=== PATIENT | male | born 1940 | race Caucasian/White ===

== ENCOUNTER 2024-01-21 19:20 | Inpatient (IN) | payer OTHER ==
[~2024-01-21] VITALS: Ht 188 cm; Wt 101.6 kg
[2024-01-21 23:20] LABS: BASOPHILS ABSOLUTE AUTO 0.05 K/mm3 (0.00-0.23); BASOPHILS PERCENT AUTO 1 % (0-2); EOSINOPHILS ABSOLUTE AUTO 0.44 K/mm3 (0.00-0.68); EOSINOPHILS PERCENT AUTO 5 % (0-6); Hematocrit 43.6 % (37.0-53.0); Hemoglobin 14.6 g/dL (13.5-17.5); IMMATURE GRAN ABSOLUTE AUTO 0.03 K/mm3 (0.00-0.10); IMMATURE GRAN PERCENT AUTO 0 % (0-1); LYMPHOCYTES ABSOLUTE AUTO 2.57 K/mm3 (0.84-5.20); LYMPHOCYTES PERCENT AUTO 27 % (21-46); MONOCYTES ABSOLUTE AUTO 0.84 K/mm3 (0.16-1.47); MONOCYTES PERCENT AUTO 9 % (4-13); Mean Corpuscular HGB 31.5 pg (26.0-34.0); Mean Corpuscular HGB Conc 33.5 g/dL (31.5-36.5); Mean Corpuscular Volume 94 fL (80-100); Mean Platelet Volume 9.9 fL (9.1-12.4); NEUTROPHILS PERCENT AUTO 59 % (41-73); Platelet Count 225 K/mm3 (150-400); RDW Coefficient Variation 12.5 % (11.7-14.2); RDW Standard Deviation 43.2 fL (35.1-46.3); Red Blood Cell Count 4.63 M/mm3 (4.30-5.90); White Blood Cell Count 9.53 K/mm3 (4.00-11.30)
[2024-01-21 23:43] LABS: Albumin, Blood 3.5 g/dL (3.4-5.0); Albumin/Globulin Ratio 0.8 (0.8-1.8); Bilirubin, Total 0.7 mg/dL (0.1-1.0); Bun/Creatinine Ratio 18.8 (12.0-20.0); Calcium, Blood 9.5 mg/dL (8.5-10.1); Creatinine, Blood 0.8 mg/dL (0.60-1.20); Globulin, Blood 4.5 g/dL (2.2-4.0); Magnesium, Blood 0.7 mg/dL (1.6-2.4); Potassium, Blood 4.1 mmol/L (3.5-5.5)
[2024-01-21 23:46] LABS: International Normalized Ratio 1.05; Prothrombin Time Results 11.2 Sec (9.7-11.5)
[2024-01-21] MEDS ORDERED: Magnesium Sulf 2 GM/Water 50ML 50 ML IV ONE (23:50)
[2024-01-22] MEDS ORDERED: Magnesium Hydroxide Conc 10 ML UDC PO PRN (03:20)
[2024-01-22 04:01] LABS: BASOPHILS ABSOLUTE AUTO 0.04 K/mm3 (0.00-0.23); BASOPHILS PERCENT AUTO 1 % (0-2); EOSINOPHILS ABSOLUTE AUTO 0.43 K/mm3 (0.00-0.68); EOSINOPHILS PERCENT AUTO 5 % (0-6); Hematocrit 41.3 % (37.0-53.0); IMMATURE GRAN ABSOLUTE AUTO 0.03 K/mm3 (0.00-0.10); IMMATURE GRAN PERCENT AUTO 0 % (0-1); LYMPHOCYTES ABSOLUTE AUTO 2.48 K/mm3 (0.84-5.20); LYMPHOCYTES PERCENT AUTO 29 % (21-46); MONOCYTES ABSOLUTE AUTO 0.71 K/mm3 (0.16-1.47); MONOCYTES PERCENT AUTO 8 % (4-13); Mean Corpuscular HGB 31.6 pg (26.0-34.0); Mean Corpuscular HGB Conc 33.9 g/dL (31.5-36.5); Mean Corpuscular Volume 93 fL (80-100); Mean Platelet Volume 9.9 fL (9.1-12.4); NEUTROPHILS ABSOLUTE AUTO 4.74 K/mm3 (1.96-9.15); NEUTROPHILS PERCENT AUTO 56 % (41-73); Platelet Count 241 K/mm3 (150-400); RDW Coefficient Variation 12.4 % (11.7-14.2); RDW Standard Deviation 42.9 fL (35.1-46.3); Red Blood Cell Count 4.43 M/mm3 (4.30-5.90); White Blood Cell Count 8.43 K/mm3 (4.00-11.30)
[2024-01-22 04:19] LABS: Albumin, Blood 3.4 g/dL (3.4-5.0); Albumin/Globulin Ratio 0.8 (0.8-1.8); Bilirubin, Total 0.9 mg/dL (0.1-1.0); Bun/Creatinine Ratio 19.6 (12.0-20.0); Calcium, Blood 9.4 mg/dL (8.5-10.1); Creatinine, Blood 0.71 mg/dL (0.60-1.20); Globulin, Blood 4.2 g/dL (2.2-4.0); Magnesium, Blood 1.3 mg/dL (1.6-2.4); Potassium, Blood 3.9 mmol/L (3.5-5.5); Total Protein, Blood 7.6 g/dL (6.4-8.2)
[2024-01-22] MEDS ORDERED: Mag Sulfate 1 GM/D5% 100ML 100 ML IV STA (07:34)
[2024-01-22 13:25] VITALS: BP 147/67
[2024-01-22] MEDS ORDERED: ZESTRIL40 M1 PO (14:09)
[2024-01-22] MEDS ORDERED: THERA-D2000 UNIT PO (14:09)
[2024-01-22] MEDS ORDERED: GLIP10 PO (14:09)
[2024-01-22] MEDS ORDERED: POTA10T PO (14:10)
[2024-01-22] MEDS ORDERED: HYDHCL25 PO (14:10)
[2024-01-22] MEDS ORDERED: CHLO25B PO (14:10)
[2024-01-22] MEDS ORDERED: ATOR80 PO (14:11)
[2024-01-22] MEDS ORDERED: FISH OIL 1,0001 EA10 PO (14:12)
[2024-01-22] MEDS ORDERED: VITAMIN B12500 MCG PO (14:12)
[2024-01-22] MEDS ORDERED: Vitamin C100 M1 PO (14:13)
[2024-01-22] MEDS ORDERED: IBUP400 PO (14:13)
[2024-01-22] MEDS ORDERED: Acetaminophen 325 MG TABLET PO PRN (14:55)
--- NOTE | 2024-01-22 14:56 | NUR ---
ADMIT SUMMARY: PT ADMITTED TO ROOM 327 FROM ER. PT A/O X 4 ON ARRIVAL, [place]. ABLE TO ANSWER QUESTIONS APPROPRIATELY. PT REPORTS HE CAN BE FORGETFUL AT TIMES AND HE IS WORRIED ABOUT HOW FORGETFUL HE IS. PT TRANSFERRED TO BED FROM [facility] ON FEET. HOB ELEVATED TO 30 DEGREES. EXPLAINED PRECAUTIONS TO PT AND FAMILY. PT HAS 3+ EDEMA TO BLE. DAUGHTER REPORTS ONSET WAS YESTERDAY. SHE ALSO REPORTS PT DRINKS 2 SMALL GATORADES DAILY. DISCUSSED CONCERNS OF PT DRINKING GATORADE DUE TO SODIUM CONTENT. PT/FAMILY EDUCATED ON FALL PRECAUTIONS. BED IN LOW POSITION AND ALARM SET.
[2024-01-22] MEDS ORDERED: HyDROXyzine HCl 25 MG Tab PO PRN (15:00)
[2024-01-22] MEDS ORDERED: Cholecalciferol 1000 Unit Tablet (=25MCG) PO SCH (15:00)
[2024-01-22] MEDS ORDERED: Lisinopril 20 MG Tab PO SCH (15:00)
[2024-01-22] MEDS ORDERED: HydroCHLOROthiazide 25 mg Tab PO SCH (15:04)
--- NOTE | 2024-01-22 15:38 | NUR ---
PT TO TRANSFER TO [facility] IN [facility]. REPORT CALLED TO KRYSTINA BLEVINS AT [phone]. PT TO GO TO ROOM 206. FAMILY UPDATED WITH ROOM AND PLACE OF TRANSFER.
[2024-01-22] MEDS ORDERED: Ondansetron 4 MG TAB PO PRN (15:45)
[2024-01-22 15:51] VITALS: BP 147/67
[2024-01-22] MEDS ORDERED: GlipiZIDE 10 MG Tab PO SCH (17:00)
--- NOTE | 2024-01-22 17:18 | NUR ---
PT DISCHARGED TO [facility] VIA [facility] TRANSPORT AT 1705. PT GIVEN SNACKS TO EAT ON THE WAY SINCE DINNER HAD NOT ARRIVED. DAUGHTER TOOK CREDIT CARDS FROM PT WALLET WITH HER AND SENT [facility] WITH ID CARDS WITH PATIENT. CALL PLACED TO KRYSTINA BLEVINS TO UPDATE HER ON ETA.
[2024-01-22] MEDS ORDERED: Docosahexanoic Acid/EPA 1,000 MG CAP PO SCH (21:00)
[2024-01-22] MEDS ORDERED: Atorvastatin 40 MG Tab PO SCH (21:00)
[2024-01-23] MEDS ORDERED: Misc. Tablet PO SCH (09:00)
[2024-01-23] MEDS ORDERED: Cyanocobalamin 500 MCG Tab PO SCH (09:00)
== END 2024-01-22 17:01 | disposition short-term general hospital (02) | DRG 84 ==
LOC: ER 19:20 → ERHOLD 01-22 03:16 → MEDS 01-22 13:19
PROVIDERS: Family Medicine; Student in an Organized Health Care Education/Training Program; ADMIT Internal Medicine
DX: S06.5XAA Traumatic subdural hemorrhage with loss of consciousness status unknown, initial encounter (principal); V49.9XXA Car occupant (driver) (passenger) injured in unspecified traffic accident, initial encounter; H91.90 Unspecified hearing loss, unspecified ear; R45.1 Restlessness and agitation; E83.42 Hypomagnesemia; R94.31 Abnormal electrocardiogram [ECG] [EKG]
CPT/HCPCS: 70450; 80053; 83735; 85025; 85610; 93005; 93010; 96365; 96366; 99285-25; A9270; J3475

== ENCOUNTER 2024-02-17 15:18 | Emergency (ER) | payer OTHER ==
[~2024-02-17] VITALS: Ht 182.9 cm; Wt 81.7 kg
[~2024-02-17 15:18] MED LIST: ATOR80 PO; CHLO25B PO; FISH OIL 1,0001 EA10 PO; GLIP10 PO; HYDHCL25 PO; IBUP400 PO; POTA10T PO; THERA-D2000 UNIT PO; VITAMIN B12500 MCG PO; Vitamin C100 M1 PO; ZESTRIL40 M1 PO
[2024-02-17 16:53] LABS: Source, Urine Clean Catch
[2024-02-17 17:02] LABS: BASOPHILS ABSOLUTE AUTO 0.04 K/mm3 (0.00-0.23); BASOPHILS PERCENT AUTO 0 % (0-2); EOSINOPHILS ABSOLUTE AUTO 0.31 K/mm3 (0.00-0.68); EOSINOPHILS PERCENT AUTO 3 % (0-6); Hematocrit 37.4 % (37.0-53.0); Hemoglobin 12.8 g/dL (13.5-17.5); IMMATURE GRAN ABSOLUTE AUTO 0.04 K/mm3 (0.00-0.10); IMMATURE GRAN PERCENT AUTO 0 % (0-1); LYMPHOCYTES ABSOLUTE AUTO 2.41 K/mm3 (0.84-5.20); LYMPHOCYTES PERCENT AUTO 22 % (21-46); MONOCYTES ABSOLUTE AUTO 1.11 K/mm3 (0.16-1.47); MONOCYTES PERCENT AUTO 10 % (4-13); Mean Corpuscular HGB 31.3 pg (26.0-34.0); Mean Corpuscular HGB Conc 34.2 g/dL (31.5-36.5); Mean Corpuscular Volume 91 fL (80-100); NEUTROPHILS PERCENT AUTO 64 % (41-73); Platelet Count 213 K/mm3 (150-400); RDW Coefficient Variation 11.9 % (11.7-14.2); RDW Standard Deviation 40.1 fL (35.1-46.3); Red Blood Cell Count 4.09 M/mm3 (4.30-5.90); White Blood Cell Count 10.81 K/mm3 (4.00-11.30)
[2024-02-17 17:05] LABS: Appearance, Urine Clear (Clear); Bilirubin, Urine Neg (Neg); Blood, Urine Neg (Neg); Color, Urine Yellow (P-Yellow); Glucose Qualitative, Urine Neg (Neg); Ketones, Urine Neg (Neg); Leukocyte Esterase, Urine Neg (Neg); Nitrite, Urine Neg (Neg); Protein, Urine 1+ (Neg); Specific Gravity, Urine 1.025 (1.003-1.022); Urobilinogen, Urine NORM (Normal)
[2024-02-17 17:28] LABS: Albumin, Blood 3.5 g/dL (3.4-5.0); Albumin/Globulin Ratio 0.8 (0.8-1.8); Bilirubin, Total 1.3 mg/dL (0.1-1.0); Bun/Creatinine Ratio 30.5 (12.0-20.0); Calcium, Blood 9.5 mg/dL (8.5-10.1); Creatinine, Blood 1.05 mg/dL (0.60-1.20); Globulin, Blood 4.2 g/dL (2.2-4.0); Potassium, Blood 4.2 mmol/L (3.5-5.5); Total Protein, Blood 7.7 g/dL (6.4-8.2)
[2024-02-17] MEDS ORDERED: LEVE500 (18:35)
[2024-02-17] MEDS ORDERED: PRESERVISION A1 EAC4 (18:35)
[2024-02-17] MEDS ORDERED: levETIRAcetam 750 MG in NS 100 ML IV ONE ×2 (21:55→22:50)
== END 2024-02-17 23:30 | disposition short-term general hospital (02) ==
LOC: ER 15:18
PROVIDERS: Student in an Organized Health Care Education/Training Program
DX: S06.5XAA Traumatic subdural hemorrhage with loss of consciousness status unknown, initial encounter (principal); X58.XXXA Exposure to other specified factors, initial encounter; Z79.899 Other long term (current) drug therapy
CPT/HCPCS: 70450; 80053; 85025; 93005; 93010; 96365; 99285-25; J1953

== ENCOUNTER 2024-03-08 10:16 | Emergency (ER) | payer OTHER ==
[~2024-03-08] VITALS: Ht 188 cm; Wt 99.8 kg
[~2024-03-08 10:16] MED LIST changes: +LEVE500; +PRESERVISION A1 EAC4
[2024-03-08 11:08] LABS: BASOPHILS ABSOLUTE AUTO 0.01 K/mm3 (0.00-0.23); BASOPHILS PERCENT AUTO 0 % (0-2); EOSINOPHILS ABSOLUTE AUTO 0.14 K/mm3 (0.00-0.68); EOSINOPHILS PERCENT AUTO 1 % (0-6); Hematocrit 37.2 % (37.0-53.0); IMMATURE GRAN ABSOLUTE AUTO 0.08 K/mm3 (0.00-0.10); IMMATURE GRAN PERCENT AUTO 1 % (0-1); LYMPHOCYTES ABSOLUTE AUTO 1.98 K/mm3 (0.84-5.20); LYMPHOCYTES PERCENT AUTO 13 % (21-46); MONOCYTES ABSOLUTE AUTO 0.97 K/mm3 (0.16-1.47); MONOCYTES PERCENT AUTO 6 % (4-13); Mean Corpuscular HGB 31.6 pg (26.0-34.0); Mean Corpuscular HGB Conc 34.9 g/dL (31.5-36.5); Mean Corpuscular Volume 90 fL (80-100); NEUTROPHILS ABSOLUTE AUTO 12.68 K/mm3 (1.96-9.15); NEUTROPHILS PERCENT AUTO 80 % (41-73); RDW Coefficient Variation 12.3 % (11.7-14.2); RDW Standard Deviation 40.5 fL (35.1-46.3); Red Blood Cell Count 4.12 M/mm3 (4.30-5.90); White Blood Cell Count 15.86 K/mm3 (4.00-11.30)
[2024-03-08] MEDS ORDERED: NS 1,000 ML IV SCH (11:15)
[2024-03-08 11:21] LABS: Mean Platelet Volume 11.1 fL (9.1-12.4)
[2024-03-08 11:27] LABS: Albumin, Blood 3.1 g/dL (3.4-5.0); Albumin/Globulin Ratio 0.8 (0.8-1.8); Bun/Creatinine Ratio 46.9 (12.0-20.0); Calcium, Blood 8.9 mg/dL (8.5-10.1); Creatinine, Blood 0.81 mg/dL (0.60-1.20); Globulin, Blood 4.1 g/dL (2.2-4.0); Potassium, Blood 3.9 mmol/L (3.5-5.5); Total Protein, Blood 7.2 g/dL (6.4-8.2)
[2024-03-08 11:42] LABS: Platelet Count 157 K/mm3 (150-400)
[2024-03-08] MEDS ORDERED: CefTRIAXone Sodium 1,000 MG in NS 100 ML IV ONE (12:15)
[2024-03-08] MEDS ORDERED: MetroNIDAZOLE 500MG/NS 100 ml 100 ML IV ONE (12:15)
[2024-03-08 12:23] LABS: Influenza A, PCR NEGATIVE (NEGATIVE); Influenza B, PCR NEGATIVE (NEGATIVE); Resp Syncytial Virus, PCR NEGATIVE (NEGATIVE); SARS-Cov-2 (COVID-19) PCR, MMC NEGATIVE (NEGATIVE)
[2024-03-08 16:02] LABS: Source, Urine Straight Cath
[2024-03-08 16:04] LABS: Appearance, Urine Clear (Clear); Bilirubin, Urine Neg (Neg); Blood, Urine Neg (Neg); Color, Urine Yellow (P-Yellow); Glucose Qualitative, Urine Neg (Neg); Ketones, Urine Neg (Neg); Leukocyte Esterase, Urine Neg (Neg); Nitrite, Urine Neg (Neg); Protein, Urine Neg (Neg); Specific Gravity, Urine 1.015 (1.003-1.022); Urobilinogen, Urine NORM (Normal)
== END 2024-03-08 19:39 | disposition short-term general hospital (02) ==
LOC: ER 10:16
PROVIDERS: Emergency Medicine
DX: I62.01 Nontraumatic acute subdural hemorrhage (principal); I62.03 Nontraumatic chronic subdural hemorrhage; J18.9 Pneumonia, unspecified organism; J96.91 Respiratory failure, unspecified with hypoxia; Z79.899 Other long term (current) drug therapy
CPT/HCPCS: 0241U; 36415; 70450; 71045; 80053; 81003; 83605; 84145; 84443; 85025; 87040; 93005; 93010; 96361; 96365; 96367; 99285-25; J0696; J7030

== ENCOUNTER 2024-08-23 09:53 | Emergency (ER) | payer OTHER ==
[~2024-08-23] VITALS: Ht 188 cm; Wt 100.7 kg
[~2024-08-23 09:53] MED LIST changes: +ATOR40TA PO; -ATOR80 PO
[2024-08-23] MEDS ORDERED: FURO20 PO (10:38)
[2024-08-23] MEDS ORDERED: LACO50TA2 PO (10:41)
[2024-08-23] MEDS ORDERED: levETIRAcetam 1,000 MG in NS 100 ML IV ONE (12:00)
[2024-08-23 12:03] LABS: BASOPHILS ABSOLUTE AUTO 0.04 K/mm3 (0.00-0.23); BASOPHILS PERCENT AUTO 0 % (0-2); EOSINOPHILS ABSOLUTE AUTO 0.36 K/mm3 (0.00-0.68); EOSINOPHILS PERCENT AUTO 4 % (0-6); Hematocrit 40.7 % (37.0-53.0); Hemoglobin 14.5 g/dL (13.5-17.5); IMMATURE GRAN ABSOLUTE AUTO 0.06 K/mm3 (0.00-0.10); IMMATURE GRAN PERCENT AUTO 1 % (0-1); LYMPHOCYTES ABSOLUTE AUTO 2.04 K/mm3 (0.84-5.20); LYMPHOCYTES PERCENT AUTO 21 % (21-46); MONOCYTES ABSOLUTE AUTO 0.78 K/mm3 (0.16-1.47); MONOCYTES PERCENT AUTO 8 % (4-13); Mean Corpuscular HGB 32.4 pg (26.0-34.0); Mean Corpuscular HGB Conc 35.6 g/dL (31.5-36.5); Mean Corpuscular Volume 91 fL (80-100); Mean Platelet Volume 9.8 fL (9.1-12.4); NEUTROPHILS ABSOLUTE AUTO 6.47 K/mm3 (1.96-9.15); NEUTROPHILS PERCENT AUTO 66 % (41-73); Platelet Count 169 K/mm3 (150-400); RDW Coefficient Variation 12.8 % (11.7-14.2); RDW Standard Deviation 42.3 fL (35.1-46.3); Red Blood Cell Count 4.47 M/mm3 (4.30-5.90); White Blood Cell Count 9.75 K/mm3 (4.00-11.30)
[2024-08-23 12:22] LABS: Prothrombin Time Results 10.7 Sec (9.7-11.5)
[2024-08-23] MEDS ORDERED: Morphine Sulfate 4 MG/1 ML Injection IV ONE (12:30)
[2024-08-23 12:34] LABS: Albumin, Blood 3.8 g/dL (3.4-5.0); Albumin/Globulin Ratio 0.9 (0.8-1.8); Bilirubin, Total 0.6 mg/dL (0.1-1.0); Bun/Creatinine Ratio 26.4 (12.0-20.0); Calcium, Blood 9.9 mg/dL (8.5-10.1); Creatinine, Blood 0.83 mg/dL (0.60-1.20); Globulin, Blood 4.1 g/dL (2.2-4.0); Total Protein, Blood 7.9 g/dL (6.4-8.2)
== END 2024-08-23 14:00 | disposition home or self-care (01) ==
LOC: ER 09:53
PROVIDERS: Emergency Medicine
DX: S06.6X0A Traumatic subarachnoid hemorrhage without loss of consciousness, initial encounter (principal); S06.5X0A Traumatic subdural hemorrhage without loss of consciousness, initial encounter; S05.12XA Contusion of eyeball and orbital tissues, left eye, initial encounter; I10 Essential (primary) hypertension; E78.5 Hyperlipidemia, unspecified; W18.30XA Fall on same level, unspecified, initial encounter; Z79.899 Other long term (current) drug therapy
CPT/HCPCS: 70450; 72125; 80053; 85025; 85610; 85730; 93005; 93010; 96374; 96375; 99285-25; J1953; J2270

== ENCOUNTER 2024-11-03 14:25 | Emergency (ER) | payer OTHER ==
[~2024-11-03] VITALS: Ht 188 cm; Wt 96.2 kg
[~2024-11-03 14:25] MED LIST changes: +FURO20 PO; +LACO50TA2 PO
[2024-11-03] MEDS ORDERED: LISI5 PO (15:02)
[2024-11-03] MEDS ORDERED: LACOSAMIDE200 MG PO (15:03)
[2024-11-03] MEDS ORDERED: DONEPEZIL HCL10 MG PO ×2 (15:04)
[2024-11-03] MEDS ORDERED: ACETAMINOPHEN PO (15:07)
[2024-11-03] MEDS ORDERED: IBUPROFEN PO (15:07)
[2024-11-03] MEDS ORDERED: ATIVAN0.5 MG PO (15:09)
== END 2024-11-03 16:30 | disposition home or self-care (01) ==
LOC: ER 14:25
DX: Z04.3 Encounter for examination and observation following other accident (principal); I10 Essential (primary) hypertension; E78.5 Hyperlipidemia, unspecified; Z79.899 Other long term (current) drug therapy
CPT/HCPCS: 99283